=== PATIENT | male | born 1950 | race Caucasian/White ===

== ENCOUNTER 2019-05-13 05:20 | Observation (INO) | payer OTHER ==
[~2019-05-13] VITALS: Ht 182.9 cm; Wt 79.4 kg
[2019-05-13 05:31] VITALS: Ht 182.9 cm; Wt 79.4 kg
--- NOTE | 2019-05-13 05:33 | NUR ---
PT. BIB [facility] FOR HEMOTYIS SINCE THIS MORNING. PER MEDICS HE IS CURRENLTY BEING TREATED FOR LUNG CANCER SINCE 07/2018, GETTING CHEMO AND RADIATION. WHEN MEDICS ARRIVED, PT. WAS IN TRIPOD POSITION, OXYGEN WAS 86% ON RA, AND APROX 30ML OF BLOOD WITH PHLEGM NOTED IN SINK. PT. WAS NOTED TO HAVE DIMINSHED BREATHSOUNDS THROUGHOUT BUT MORE DIMINISHED ON LEFT SIDE. BREATHING TX WAS GIVEN IN ROUTE, BLOOD SUGAR WAS 320. PT. AAOX4, NOTED TO HAVE DYSPNEA AND COUGHING UP BLOOD IN EMESIS BAG. FAMILY AT BEDSIDE. DR. BERNAL AT BEDSIDE FOR MSE.
--- NOTE | 2019-05-13 05:49 | NUR ---
XRAY AT BEDSIDE
[2019-05-13] MEDS ORDERED: ATIVAN2 MG (05:59)
[2019-05-13] MEDS ORDERED: NOR10T (05:59)
[2019-05-13] MEDS ORDERED: CARAFATE1 GM/10 ML (06:00)
[2019-05-13] MEDS ORDERED: DECADRON4 MG (06:00)
[2019-05-13] MEDS ORDERED: METFORMIN HYD1000 M2 (06:00)
[2019-05-13] MEDS ORDERED: PROSCAR5 MG (06:00)
[2019-05-13] MEDS ORDERED: PROAIR HFA8.5 GM (06:01)
[2019-05-13] MEDS ORDERED: SANCUSO3.1 MG/24 (06:01)
--- NOTE | 2019-05-13 06:03 | NUR ---
RT AT BEDSIDE FOR BREATHING TREATMENT
[2019-05-13 06:13] LABS: BASOPHIL % 0.1 % (0-2)
[2019-05-13 06:14] LABS: RED CELL DISTRIBUTION WIDTH 15.6 % (11.5-14.5)
[2019-05-13 06:15] LABS: PLATELET COUNT 563 x10^3mcL (130-400)
--- NOTE | 2019-05-13 06:15 | NUR ---
PT. SITTING UP ON GURNEY IN POSITION OF COMFORT. CONTINUES TO BE ON 3L NC. NO BLOODY SPUTUM NOTED SINCE ARRIVAL TO ED. CALL LIGHT IN REACH. AT BEDSIDE.
[2019-05-13 06:25] LABS: CALCIUM 8.9 mg/dL (8.5-10.1); CARBON DIOXIDE 24.8 mmol/L (21-32); CHLORIDE SERUM 101 mmol/L (98-107); CREATININE SERUM 0.8 mg/dL (0.7-1.3); GLUCOSE SERUM 315 mg/dL (74-106); POTASSIUM SERUM 4.3 mmol/L (3.5-5.1); SODIUM SERUM 138 mmol/L (136-145)
[2019-05-13 06:30] LABS: ALKALINE PHOSPHATASE 90 U/L (46-116); ALT/SGPT 8 U/L (16-63); AST/SGOT 10 U/L (15-37); BILIRUBIN TOTAL 0.31 mg/dL (0.20-1.00); TOTAL PROTEIN, SERUM 7.5 g/dL (6.4-8.2)
--- NOTE | 2019-05-13 06:45 | NUR ---
PER PT. HAS BEEN OFF XARELTO FOR APROX ONE MONTH
[2019-05-13 06:57] LABS: ALBUMIN 2.7 g/dL (3.4-5.0)
--- NOTE | 2019-05-13 07:00 | NUR ---
RECEIVED REPORT FROM SG PYTHON ARCHITECT VISH,
--- NOTE | 2019-05-13 07:09 | NUR ---
REPORT GIVEN TOP MARYANNE RN FOR FURTHER CARE OF PATIENT. ALL QUESTIONS AND CONCERNS ADDRESSED.
--- NOTE | 2019-05-13 08:04 | NUR ---
DR. NAZARIO AT BEDSIDE SPEAKING TO PT. ABOUT POC
--- NOTE | 2019-05-13 08:05 | NUR ---
PT. LAYING IN BED, AAOX X4, PT. WITH ONE EPISODE OF BRIGHT RED EMESIS 60 ML, VOMIT BAG AND PAPERTOWESL AT BEDSIDE, DENIES PAIN 0/10, REPOSITIONED PT. FOR COMFORT, ON CARDIAC MONTIOR, PULSE OX, 02 @ 3 L/NC, PENDING ADMIT, PT. NOTIFIED DR. NAZARIO THAT PT CURRENTLY HAS SANCUSO PATCH MEDICATION ON HIS LEFT DELTOID FOR NAUSEA, PATCH WAS PLACED YESTERDAY BY PCP FOR NAUSEA CONTROL FOR CHEMO AND RADIATION WHICH WAS SCHEDULED THIS 8 AM, WILL MONITOR,
--- NOTE | 2019-05-13 08:11 | NUR ---
BILL OF MATERIALS CLERK AT BEDSIDE EXPLAINING CT ANGIO PROCEDURE TO PT.
--- NOTE | 2019-05-13 08:30 | NUR ---
DR NAZARIO SPEAKING WITH PTS FAMILY REGARDING POC
--- NOTE | 2019-05-13 08:41 | NUR ---
ROCEPHIN INFUSION COMPLETED. AZITHROMYCIN ANTIBIOTIC INFUSION STARTED FAMILY AT BEDSIDE WILL MONITOR.
--- NOTE | 2019-05-13 08:58 | NUR ---
PT TO TELE FLOOR VIA [facility] ON PORTABLE CM WITH AND FAMILY ACCOMPANYING PT. MARYANNE WAHL AND [place] EMT TRANSFERRING PT. ELMA WAHL RESUMING CARE OF PT IN TELE FLOOR. PT DC'D FROM ED AT THIS TIME.
--- NOTE | 2019-05-13 09:46 | NUR ---
SPOKE WITH STACI WAHL. PLEASE HOLD [place] THIS AM FOR THORACENTESIS. PER STACI WILL COME UP SOON FOR THORACENTESIS.
--- NOTE | 2019-05-13 11:15 | NUR ---
PT SITTING UP IN BED. NO ACUTE RESP DISTRESS NOTED ON 3L NC. PT HAS COUGHT PRODUCTIVE WITH BLOOD TINGED SPUTUM. IV ANTIBIOTICS INFUSING ORDERED. NO REDNESS OR SWELLING NOTED. PT C/O PAIN 8/10 GENERALIZED BODY ACHES. PT STATES "I ALWAYS HAVE THIS PAIN TO MY JOINTS. I TAKE NORCO AT HOME AND THAT HELPS WITH MY PAIN" MEDICATED PER EMAR. WILL CONTINUE TO MONITOR. CALL LIGHT IN REACH. BED IN LOWEST POSITION.
--- NOTE | 2019-05-13 12:35 | NUR ---
PT SITTING UP AT BEDSIDE. THORACENTESIS COMPLETE. 750 ML OF LINDA YELLOW FLUID REMOVED FROM LEFT SIDE. BANDAID TO ALBERT CHEST NOTED, CDI. WILL CONTINUE TO MONITOR.
--- NOTE | 2019-05-13 13:00 | NUR ---
PT SITTING UP AT BEDSIDE. PT EATING LUNCH. NO ACUTE RESP DISTRESS NOTED ON 2L NC. PT COUGHING. NON PRODUCTIVE COUGH. IV PATENT AND INFUSING. GIVEN IV ANTIBIOTICS ORDERED. WILL CONTINUE TO MONITOR. CALL LIGHT IN REACH. BED IN LOWEST POSITION.
[2019-05-13 13:08] LABS: SOURCE FLUID PLEURAL
[2019-05-13 13:28] VITALS: BP 103/64
[2019-05-13 13:51] VITALS: BP 100/71
--- NOTE | 2019-05-13 14:50 | NUR ---
Rapid Response called, patient with large amount of blood noted, coughing up blood per patient. IV inserted, 18G RFA, flushed with 10 ML ns, blood return noted. Patient is stable for transfer to ICU.
--- NOTE | 2019-05-13 14:54 | NUR ---
PT VOMITING BRIGHT RED BLOOD. ZOFRAN ADMINISTERED ORDERED PRN FOR N/V. PT GOING TO BE TRANSFERRED TO ICU PER CHARGE NURSE, SAWYER. PRIMARY NURSE ELMA AWARE OF MED ADMINISTRATION.
--- NOTE | 2019-05-13 15:09 | NUR ---
[facility]APID RESPONSE CALLED AT 1440 PT VOMITING LARGE AMOUNTS OF BLOOD. FAMILY NOTED BLUE EMESIS BAG WAS HALF WAY FULL WITH BLOOD. DR. GARCIA MADE AWARE. PT GIVEN ZOFRAN IV. CHARGE NURSE YNES AT BEDSIDE. DR. LUNA AT BEDSIDE ORDERED STAT CHEST XRAY. FAMILY AT BEDSIDE. PT CONTINUALLY VOMITING LARGE AMOUNTS OF BLOOD 275 ML NOTED. CHARGE NURSE YNES RECEIVED ORDERS TO TRANSFER PT TO ICU. PT TRANSFERRED TO ICU BED 8. REPORT GIVEN TO SUGEY WAHL AT BEDSIDE. ALL QUESTIONS AND CONCERNS ADDRESSED.
--- NOTE | 2019-05-13 15:53 | NUR ---
RECIEVED PT VIA BED ACCOMPANIED BY 2 RN'S. PT AAOX4. ABLE TO FOLLOW COMMANDS. NO FACIAL DROOP NOTED. SPEECH IS CLEAR AND APPROPRIATE. PERRL. GLASSES ON FACE. BLOOD-TINGED SECRETIONS FROM MOUTH. TRACHEA MIDLINE. NO JVD PRESENT. SYMMETRICAL CHEST WALL EXPANSION NOTED. BREATHING E/U. DENIES SOB, CP, OR PAIN. DIMINISHED LUNG SOUNDS TO BASES. ABD IS SOFT, SYMMETRICAL, ROUND, AND NONTENDER. NO BM AT THIS TIME. SINUS TACHYCARDIA ON COVER INSPECTOR. MOD PALPABLE PULSES X4. CAP REFILL <3 SEC. NO EDEMA. SKIN IS WARM/DRY TO TOUCH, SWIFT/BROWN IN COLOR. PIV TO L FA L FA AND R WRIST INTACT, PORTS PATENT, DRESSINGS CDI. SKIN INTACT, NO OPEN WOUNDS NOTED.
--- NOTE | 2019-05-13 16:00 | NUR ---
at bedside for consent of EGD, consent obtained and signed with witness VISH Steel.
[2019-05-13 16:04] LABS: BASOPHIL % 0 % (0-2); PLATELET COUNT 559 x10^3mcL (130-400); RED CELL DISTRIBUTION WIDTH 15.4 % (11.5-14.5)
--- NOTE | 2019-05-13 16:30 | NUR ---
EGD DONE AT THIS TIME BY DR. CARD.
[2019-05-13 16:40] VITALS: BP 131/74
--- NOTE | 2019-05-13 17:58 | NUR ---
Patient is taken to CT with VISH Steel and smog technician via wheelchair with cardiac monitoring at this time.
--- NOTE | 2019-05-13 19:16 | NUR ---
REPORT GIVEN TO USAMA WAHL. ALL QUESTIONS AND CONCERNS ADDRESSED. RN TO RESUME ALL CARE.
[2019-05-13 19:23] VITALS: BP 106/61
--- NOTE | 2019-05-13 19:23 | NUR ---
REC'D REPORT FROM SUGEY WAHL TO ASSUME CARE. PT A/O X4, SPEECH CLEAR AND APPROPRIATE. OPENS EYES SPONTANEOUSLY. PT WEARING GLASSES. PERRLA NOTED. EENT FREE OF DISCHARGE. RESPS E/U ON O2 3LPM VIA NC, O2 SAT 97%. LUNG SOUNDS RIGHT SIDE CLEAR, LEFT SIDE DIMINISHED. PRODUCTIVE COUGH NOTED, CLEARED BY COUGHING, BLOOD TINGED SPUTUM NOTED. SQUEEZER OPERATOR IN PLACE SHOWING NSR WITH OCCASSIONAL PVCS. S1 S2 AUSCULTATED. CHEST WALL STABLE. DENIES ANY CP, SYNCOPE OR DIZZINESS. BP 108/61 MAP 80, HR 77. PULSES PALPABLE X4. CAP REFILL < 3 SECS. NO EDEMA NOTED. IV TO LAC AND R WRIST INTACT AND PATENT. IVF NS INFUSING @ 80ML/HR. ABD FLAT, SOFT, NONTENDER TO TOUCH. BOWEL SOUNDS ACTIVE. DENIES ANY N/V. VOIDS FREELY. URINAL AT BEDSIDE. DENIES ANY URINARY SYMPTOMS. SKIN INTACT. WARM DRY TO TOUCH. GEN WEAKNESS NOTED. ACTIVE ROM NOTED. ABLE TO REPOSITION SELF. INSTRUCTED TO USE CALL LIGHT FOR ANY ASSISTANCE. CALL LIGHT WITHIN REACH. ALL NEEDS MET AT THIS TIME. WILL CONTINUE TO MONITOR.
[2019-05-13 23:03] VITALS: BP 102/53
--- NOTE | 2019-05-14 00:03 | NUR ---
PT COUGHED UP 300ML BRIGHT RED BLOOD. ZOFRAN IVP GIVEN. ALL LINENS CHANGED AT THIS TIME. PT TEACHING PROVIDED TO KEEP HOB ELEVATED THROUGHOUT NIGHT. VERBALIZED UNDERSTANDING.
--- NOTE | 2019-05-14 00:28 | NUR ---
DR JORDAN IN TO SEE PT, UPDATED ON PTS STATUS. NO NEW ORDERS GIVEN. DR JORDAN STS CONTINUE SAME ATB.
--- NOTE | 2019-05-14 02:00 | NUR ---
EMPTIED PTS URINAL, 400ML CLEAR YELLOW URINE.
[2019-05-14 03:29] VITALS: BP 107/57
--- NOTE | 2019-05-14 05:10 | NUR ---
EMPTIED PTS URINAL 200ML YELLOW URINE. EMPTIED BASIN WITH 100ML BLOODY OUTPUT NOTED. PT DENIES ANY DISCOMFORT. DENIES ANY PAIN OR SOB AT THIS TIME.
[2019-05-14 05:19] LABS: BASOPHIL % 0 % (0-2); PLATELET COUNT 459 x10^3mcL (130-400); RED CELL DISTRIBUTION WIDTH 15.3 % (11.5-14.5)
[2019-05-14 05:31] LABS: CALCIUM 8.8 mg/dL (8.5-10.1); CARBON DIOXIDE 27.8 mmol/L (21-32); CHLORIDE SERUM 105 mmol/L (98-107); CREATININE SERUM 0.7 mg/dL (0.7-1.3); GLUCOSE SERUM 159 mg/dL (74-106); POTASSIUM SERUM 4.2 mmol/L (3.5-5.1); SODIUM SERUM 143 mmol/L (136-145)
[2019-05-14 05:51] VITALS: BP 107/57
--- NOTE | 2019-05-14 06:41 | NUR ---
PT SEEN SLEEPING BUT EASILY AROUSABLE. DENIES ANY PAIN OR SOB.
[2019-05-14 08:04] VITALS: BP 109/59
--- NOTE | 2019-05-14 08:36 | NUR ---
PATIENT CALLED NURSE TO BEDSIDE. PATIENT PROJECTILE VOMITTING BLOOD TINGED EMESIS AT THIS TIME, APPROXIMATELY 200 ML. UPON CLEANING PATIENT, FOUND PATIENT TO BE UNRESPONSIVE, AND BRADYCARDIAC. PULSES CHECKED, NO PULSES FOUND. ANN MARIE TINEO CALLED AT THIS TIME. CPR INITIATED. SEE ANN MARIE TINEO RECORD FOR DETAIL.
--- NOTE | 2019-05-14 08:57 | NUR ---
0857-ATTEMPTED TO CALL PT'S SON WARREN DENNEY, NO ANSWER 0858-CALLED AND SPOKE TO PT'S ANA AND NOTIFIED HER PT CURRENTLY UNDERGOING CPR AND TO ARRIVE TO HOSPITAL.
--- NOTE | 2019-05-14 10:19 | NUR ---
[facility] CALLED AT THIS TIME. CASE # [id number]. SPOKE WITH YESI. PER YESI, SHE WILL CALL BACK IN AN HOUR TO RECEIVE CORONERS INFORMATION.
--- NOTE | 2019-05-14 10:25 | NUR ---
CALLED HEALTH INFORMATION DIRECTOR AT THIS TIME. SPOKE WITH RYLEY. PER RYLEY WILL RECEIVE CALL BACK.
--- NOTE | 2019-05-14 12:17 | NUR ---
CONTACT CENTER MANAGERDEMARCUS JARQUIN CALLED AT THIS TIME. CORONERS
--- NOTE | 2019-05-14 14:03 | NUR ---
POST MORTEM CARE BEING DONE AT THIS TIME WITH THE NURSING STUDENTS AND INSTRUCTOR.
== END 2019-05-14 16:00 | disposition expired | DRG 180 ==
LOC: ED 05:20 → DU 07:47 → IC 07:47 → DU 07:47 → IC 15:00
PROVIDERS: Emergency Medicine; Internal Medicine; ADMIT Internal Medicine
PROC: 0DJ08ZZ Inspection of Upper Intestinal Tract, Via Natural or Artificial Opening Endoscopic (ICD-10-PCS; 2019-05-13)
PROC: 0W9B3ZZ Drainage of Left Pleural Cavity, Percutaneous Approach (ICD-10-PCS; principal; 2019-05-13 16:00)
PROC: 5A12012 Performance of Cardiac Output, Single, Manual (ICD-10-PCS; 2019-05-14)
PROC: 0BH17EZ Insertion of Endotracheal Airway into Trachea, Via Natural or Artificial Opening (ICD-10-PCS; 2019-05-14)
DX: C34.90 Malignant neoplasm of unspecified part of unspecified bronchus or lung (principal); J96.01 Acute respiratory failure with hypoxia; R04.2 Hemoptysis; J44.1 Chronic obstructive pulmonary disease with (acute) exacerbation; E87.2 Acidosis; J91.0 Malignant pleural effusion; R00.0 Tachycardia, unspecified; I49.3 Ventricular premature depolarization; Z79.899 Other long term (current) drug therapy; Z95.5 Presence of coronary angioplasty implant and graft; Z87.891 Personal history of nicotine dependence; Z86.711 Personal history of pulmonary embolism; Z96.651 Presence of right artificial knee joint
CPT/HCPCS: 32555; 43235; 82962; 88344; C1729; G0378; J0171; J0330; J0456; J0696; J1200; J1610; J2250; J2310; J2405; J2543; J2704; J3010; J3370; J3490; J7620; J7644; Q0092; Q9967